=== PATIENT | male | born 1960 | race Caucasian/White ===

== ENCOUNTER 2018-01-14 10:28 | Emergency (ER) | payer BC ==
[2018-01-14] MEDS ORDERED: FLUORESCEIN STRIP (13:30)
[2018-01-14] MEDS: TETRACAINE 0.5% 4 ML OPH RIGHT EYE (13:35)
[2018-01-14] MEDS: FLUORESCEIN STRIP RIGHT EYE (13:35)
== END 2018-01-14 13:57 | disposition home or self-care (01) ==
LOC: FTE 10:28
DX: H11.31 Conjunctival hemorrhage, right eye (principal)
CPT/HCPCS: 99283